=== PATIENT | female | born 1950 | race African-American/Black ===

== ENCOUNTER 2017-08-05 20:25 | Inpatient (IN) ==
[2017-08-05] MEDS ORDERED: DEXTROSE 50% 25 GM/50 ML SYRINGE IV ONE (20:33)
[2017-08-05] MEDS ORDERED: DEXTROSE 50% 25 GM/50 ML VIAL IV STA (21:00)
[2017-08-05] MEDS ORDERED: ADENOSINE 6 MG/2 ML VIAL ONE (21:37)
[2017-08-05 22:11] LABS: Basophils # 0.1 10*3/uL (0.0-0.2); Basophils % 0.4 % (0.0-0.8); Eosinophils # 0.2 10*3/uL (0.0-0.87); Eosinophils % 2.1 % (0.00-10.9); Hematocrit 39.3 VOL% (35.7-47.0); Hemoglobin 12.7 GM/DL (12.0-16.0); Immature Granulocytes % 0.3 %; Immature Granulocytes Absolute 0.03 #; Lymphocytes # 4.7 10*3/uL (1.4-4.0); Lymphocytes % 41.8 % (21.3-54.2); Mean Corpuscular HGB Conc 32.3 GM/DL (32-36); Mean Corpuscular Hemoglobin 30 PG (27-34); Mean Platelet Volume 10.3 FL (9.6-12.0); Monocytes % 8.9 % (1.7-12.7); Neutrophils # 5.2 10*3/uL (1.4-7.4); Neutrophils % 46.5 % (38.7-73.9); Platelet Count 237 T/CUMM (130-400); Red Blood Count 4.18 MC/CUMM (3.8-5.5); Red Cell Distribution Width 12.6 % (9.3-17.3); White Blood Count 11.3 T/CUMM (4-12)
[2017-08-05 22:12] LABS: Alanine Aminotransferase 11 U/L (13-56); Albumin 3.1 G/DL (3.4-5.0); Alkaline Phosphatase 65 U/L (45-117); Aspartate Amino Transferase 22 U/L (0-37); Bilirubin,Total < 0.39 MG/DL (0.2-1.0); Blood Urea Nitrogen 49 MG/DL (7-18); Calcium 9.3 MG/DL (8.5-10.1); Osmolality,Calculated 287.4 MOS/KG (273-304); Potassium 3.9 MMOL/L (3.5-5.1); Sodium 140 MMOL/L (136-145); Total Protein 7.6 G/DL (6.4-8.3)
[2017-08-05 22:17] LABS: Glucose 30 MG/DL (74-106)
[2017-08-06] MEDS ORDERED: DEXTROSE 50% 25 GM/50 ML VIAL IV PRN (02:12)
[2017-08-06] MEDS ORDERED: GLUCAGON 1 MG VIAL IM PRN (02:12)
[2017-08-06] MEDS ORDERED: ONDANSETRON 4 MG/2 ML VIAL IV PRN (02:12)
[2017-08-06] MEDS: DEXTROSE 5% NACL 0.45% 1,000 ML IV SCH ×4 (03:15→21:19)
[2017-08-06 05:56] LABS: Calcium 8.9 MG/DL (8.5-10.1); Osmolality,Calculated 287.7 MOS/KG (273-304); Potassium 4.7 MMOL/L (3.5-5.1)
[2017-08-06] MEDS: ACETAMINOPHEN 325 MG TABLET PO PRN ×3 (06:14→17:58)
[2017-08-06] MEDS ORDERED: hydrALAZINE 20 MG/1 ML VIAL IV PRN (06:38)
[2017-08-06] MEDS: INSULIN LISPRO 100 UNIT/ML SUBCUT SCH ×4 (07:34→20:12)
[2017-08-06] MEDS: PANTOPRAZOLE 40 MG TABLET PO SCH (08:19)
[2017-08-06] MEDS: TAMOXIFEN 10 MG TABLET PO SCH (08:19)
[2017-08-06] MEDS: METOPROLOL SUCCINATE XL 25 MG TABLET PO SCH ×2 (08:19→20:12)
[2017-08-06] MEDS: CYPROHEPTADINE 4 MG TABLET PO SCH (20:11)
[2017-08-07] MEDS: INSULIN LISPRO 100 UNIT/ML SUBCUT SCH ×4 (07:31→20:43)
[2017-08-07 07:39] LABS: Calcium 8.5 MG/DL (8.5-10.1); Osmolality,Calculated 292.7 MOS/KG (273-304)
[2017-08-07] MEDS: TAMOXIFEN 10 MG TABLET PO SCH (08:08)
[2017-08-07] MEDS: CYPROHEPTADINE 4 MG TABLET PO SCH ×2 (08:08→20:42)
[2017-08-07] MEDS: METOPROLOL SUCCINATE XL 25 MG TABLET PO SCH ×2 (08:08→20:42)
[2017-08-07] MEDS: PANTOPRAZOLE 40 MG TABLET PO SCH (08:08)
[2017-08-07] MEDS: ACETAMINOPHEN 325 MG TABLET PO PRN (10:50)
[2017-08-07] MEDS: AZITHROMYCIN 250 MG TABLET PO SCH (13:29)
[2017-08-07] MEDS: cefTRIAXone 2,000 MG in SYRINGE 1 EACH IV SCH (13:30)
[2017-08-07] MEDS: amLODIPine 10 MG TABLET PO SCH (13:30)
[2017-08-08] MEDS: ACETAMINOPHEN 325 MG TABLET PO PRN ×2 (02:02→10:06)
[2017-08-08 07:11] LABS: Osmolality,Calculated 301.4 MOS/KG (273-304); Potassium 4.7 MMOL/L (3.5-5.1)
[2017-08-08] MEDS: TAMOXIFEN 10 MG TABLET PO SCH (08:33)
[2017-08-08] MEDS: glipiZIDE 5 MG TABLET PO SCH (08:34)
[2017-08-08] MEDS: amLODIPine 10 MG TABLET PO SCH (08:34)
[2017-08-08] MEDS: METOPROLOL SUCCINATE XL 25 MG TABLET PO SCH ×2 (08:34→20:53)
[2017-08-08] MEDS: CYPROHEPTADINE 4 MG TABLET PO SCH ×2 (08:34→20:53)
[2017-08-08] MEDS: AZITHROMYCIN 250 MG TABLET PO SCH (08:34)
[2017-08-08] MEDS: INSULIN LISPRO 100 UNIT/ML SUBCUT SCH ×4 (08:35→20:54)
[2017-08-08] MEDS: PANTOPRAZOLE 40 MG TABLET PO SCH (08:35)
[2017-08-08] MEDS: traMADol 50 MG TABLET PO PRN ×2 (15:03→22:54)
[2017-08-08] MEDS: cefTRIAXone 2,000 MG in SYRINGE 1 EACH IV SCH (15:05)
[2017-08-09 04:48] LABS: Calcium 8.2 MG/DL (8.5-10.1); Osmolality,Calculated 308.3 MOS/KG (273-304); Potassium 5.2 MMOL/L (3.5-5.1)
[2017-08-09] MEDS: CYPROHEPTADINE 4 MG TABLET PO SCH (09:03)
[2017-08-09] MEDS: TAMOXIFEN 10 MG TABLET PO SCH (09:03)
[2017-08-09] MEDS: AZITHROMYCIN 250 MG TABLET PO SCH (09:04)
[2017-08-09] MEDS: INSULIN LISPRO 100 UNIT/ML SUBCUT SCH ×3 (09:04→12:01)
[2017-08-09] MEDS: glipiZIDE 5 MG TABLET PO SCH (09:04)
[2017-08-09] MEDS: PANTOPRAZOLE 40 MG TABLET PO SCH (09:04)
[2017-08-09] MEDS: METOPROLOL SUCCINATE XL 25 MG TABLET PO SCH (09:04)
[2017-08-09] MEDS: amLODIPine 10 MG TABLET PO SCH (09:04)
[2017-08-09] MEDS: traMADol 50 MG TABLET PO PRN (09:19)
[2017-08-09] MEDS: ACETAMINOPHEN 325 MG TABLET PO PRN (10:22)
[2017-08-09 12:08] VITALS: BP 129/68
[2017-08-09] MEDS: cefTRIAXone 2,000 MG in SYRINGE 1 EACH IV SCH (14:50)
[2017-08-09] MEDS ORDERED: SODIUM BICARBONATE 650 MG TABLET PO SCH (15:00)
== END 2017-08-09 15:20 | disposition home or self-care (01) | DRG 637 ==
LOC: N.EDINP 20:25 → N.ED 20:25 → N.CC 08-06 01:55 → N.4E 08-07 14:48
PROVIDERS: ADMIT Hospitalist; ATTEND Hospitalist

== ENCOUNTER 2017-08-17 02:09 | Observation (INO) ==
[2017-08-17 03:42] LABS: Basophils % 0.4 % (0.0-0.8); Eosinophils # 0.2 10*3/uL (0.0-0.87); Eosinophils % 1.9 % (0.00-10.9); Hematocrit 30.6 VOL% (35.7-47.0); Hemoglobin 9.7 GM/DL (12.0-16.0); Immature Granulocytes % 0.7 %; Immature Granulocytes Absolute 0.07 #; Lymphocytes # 3.2 10*3/uL (1.4-4.0); Lymphocytes % 33.1 % (21.3-54.2); Mean Corpuscular HGB Conc 31.7 GM/DL (32-36); Mean Corpuscular Hemoglobin 30 PG (27-34); Mean Corpuscular Volume 95.6 FL (87-102); Mean Platelet Volume 10.3 FL (9.6-12.0); Monocytes # 0.6 10*3/uL (0.11-0.8); Monocytes % 6.3 % (1.7-12.7); Neutrophils # 5.5 10*3/uL (1.4-7.4); Neutrophils % 57.6 % (38.7-73.9); Platelet Count 191 T/CUMM (130-400); Red Cell Distribution Width 13.1 % (9.3-17.3); White Blood Count 9.6 T/CUMM (4-12)
[2017-08-17 04:05] LABS: Alanine Aminotransferase 18 U/L (13-56); Albumin 2.8 G/DL (3.4-5.0); Alkaline Phosphatase 50 U/L (45-117); Aspartate Amino Transferase 26 U/L (0-37); Bilirubin,Total < 0.39 MG/DL (0.2-1.0); Blood Urea Nitrogen 83 MG/DL (7-18); Calcium 8.6 MG/DL (8.5-10.1); Glucose 237 MG/DL (74-106); Osmolality,Calculated 302.1 MOS/KG (273-304); Sodium 135 MMOL/L (136-145); Total Protein 6.6 G/DL (6.4-8.3)
[2017-08-17 04:17] LABS: Potassium 6.1 MMOL/L (3.5-5.1)
[2017-08-17] MEDS ORDERED: CALCIUM GLUCONATE 2,000 MG in SODIUM CHLORIDE 0.9% 100 ML IV ONE (04:19)
[2017-08-17] MEDS ORDERED: SODIUM CHLORIDE 0.9% 500 ML IV STA (04:19)
[2017-08-17] MEDS ORDERED: CALCIUM GLUCONATE 1,000 MG/10 ML VIAL IV ONE (04:40)
[2017-08-17] MEDS ORDERED: SODIUM BICARB INJ 50 MEQ in DEXTROSE 5% 1,000 ML IV SCH (05:00)
[2017-08-17] MEDS ORDERED: DEXTROSE 50% 25 GM/50 ML VIAL IV PRN (05:49)
[2017-08-17] MEDS ORDERED: ACETAMINOPHEN 325 MG TABLET PO PRN (05:49)
[2017-08-17] MEDS ORDERED: ONDANSETRON 4 MG/2 ML VIAL IV PRN (05:49)
[2017-08-17] MEDS ORDERED: GLUCAGON 1 MG VIAL IM PRN (05:49)
[2017-08-17] MEDS ORDERED: SODIUM CHLORIDE 0.9% 1,000 ML IV SCH (06:00)
[2017-08-17] MEDS ORDERED: SODIUM POLYSTYRENE SULFATE 15 GM/60 ML BOTTLE ONE ×2 (06:45→14:23)
[2017-08-17] MEDS: SODIUM POLYSTYRENE SULFATE 15 GM/60 ML BOTTLE PO SCH ×3 (06:50→21:08)
[2017-08-17 08:15] LABS: Basophils % 0.3 % (0.0-0.8); Eosinophils # 0.2 10*3/uL (0.0-0.87); Eosinophils % 1.7 % (0.00-10.9); Hemoglobin 9.7 GM/DL (12.0-16.0); Immature Granulocytes % 0.4 %; Immature Granulocytes Absolute 0.04 #; Lymphocytes # 2.8 10*3/uL (1.4-4.0); Mean Corpuscular HGB Conc 32.3 GM/DL (32-36); Mean Corpuscular Hemoglobin 31 PG (27-34); Mean Corpuscular Volume 94.6 FL (87-102); Mean Platelet Volume 10.1 FL (9.6-12.0); Monocytes # 0.6 10*3/uL (0.11-0.8); Neutrophils # 6.6 10*3/uL (1.4-7.4); Neutrophils % 64.6 % (38.7-73.9); Platelet Count 207 T/CUMM (130-400); Red Blood Count 3.17 MC/CUMM (3.8-5.5); Red Cell Distribution Width 13.2 % (9.3-17.3); White Blood Count 10.3 T/CUMM (4-12)
[2017-08-17] MEDS ORDERED: INSULIN LISPRO 100 UNIT/ML ONE (08:15)
[2017-08-17] MEDS: INSULIN LISPRO 100 UNIT/ML SUBCUT SCH ×4 (08:19→21:09)
[2017-08-17] MEDS ORDERED: amLODIPine 10 MG TABLET ONE (09:04)
[2017-08-17] MEDS ORDERED: PANTOPRAZOLE 40 MG TABLET PO ONE (09:05)
[2017-08-17] MEDS: glipiZIDE 5 MG TABLET PO SCH (09:11)
[2017-08-17] MEDS: amLODIPine 10 MG TABLET PO SCH (09:14)
[2017-08-17] MEDS: LEVOFLOXACIN 250 MG TABLET PO SCH (09:14)
[2017-08-17] MEDS: TAMOXIFEN 10 MG TABLET PO SCH (09:14)
[2017-08-17] MEDS: PANTOPRAZOLE 40 MG TABLET PO SCH (09:14)
[2017-08-17] MEDS: METOPROLOL SUCCINATE XL 25 MG TABLET PO SCH ×2 (09:15→21:07)
[2017-08-17] MEDS: SODIUM BICARBONATE 650 MG TABLET PO SCH ×3 (09:15→21:08)
[2017-08-17 09:24] LABS: Sedimentation Rate-Westergren 105 MM/HR (0-30)
[2017-08-17] MEDS: SODIUM BICARB INJ 150 MEQ in DEXTROSE 5% 850 ML IV SCH ×2 (11:22→21:13)
[2017-08-17 13:12] LABS: Hemoglobin A1 (Alkaline) 97.4 % (96.5-98.5); Hemoglobin A2 (Alkaline) 2.6 % (1.5-3.5)
[2017-08-17 17:45] LABS: Folate 12.3 NG/ML (5.4-24.0); Vitamin B12 1000 PG/ML (211-911)
[2017-08-17] MEDS: traMADol 50 MG TABLET PO PRN (23:00)
[2017-08-18] MEDS: SODIUM BICARB INJ 150 MEQ in DEXTROSE 5% 850 ML IV SCH (05:25)
[2017-08-18 06:07] LABS: Basophils % 0.4 % (0.0-0.8); Eosinophils # 0.2 10*3/uL (0.0-0.87); Hematocrit 28.2 VOL% (35.7-47.0); Hemoglobin 9.1 GM/DL (12.0-16.0); Immature Granulocytes % 0.4 %; Immature Granulocytes Absolute 0.03 #; Lymphocytes # 2.1 10*3/uL (1.4-4.0); Lymphocytes % 27.4 % (21.3-54.2); Mean Corpuscular HGB Conc 32.3 GM/DL (32-36); Mean Corpuscular Hemoglobin 30 PG (27-34); Mean Corpuscular Volume 93.7 FL (87-102); Mean Platelet Volume 10.3 FL (9.6-12.0); Monocytes # 0.5 10*3/uL (0.11-0.8); Monocytes % 6.5 % (1.7-12.7); Neutrophils # 4.8 10*3/uL (1.4-7.4); Neutrophils % 63.3 % (38.7-73.9); Platelet Count 192 T/CUMM (130-400); Red Blood Count 3.01 MC/CUMM (3.8-5.5); Red Cell Distribution Width 12.5 % (9.3-17.3); White Blood Count 7.5 T/CUMM (4-12)
[2017-08-18] MEDS: SODIUM POLYSTYRENE SULFATE 15 GM/60 ML BOTTLE PO SCH ×2 (06:22→14:34)
[2017-08-18 06:43] LABS: Calcium 8.1 MG/DL (8.5-10.1); Osmolality,Calculated 309.8 MOS/KG (273-304); Potassium 3.4 MMOL/L (3.5-5.1)
[2017-08-18] MEDS: METOPROLOL SUCCINATE XL 25 MG TABLET PO SCH (09:19)
[2017-08-18] MEDS: TAMOXIFEN 10 MG TABLET PO SCH (09:19)
[2017-08-18] MEDS: SODIUM BICARBONATE 650 MG TABLET PO SCH (09:19)
[2017-08-18] MEDS: glipiZIDE 5 MG TABLET PO SCH (09:19)
[2017-08-18] MEDS: amLODIPine 10 MG TABLET PO SCH (09:19)
[2017-08-18] MEDS: INSULIN LISPRO 100 UNIT/ML SUBCUT SCH ×2 (09:19→14:34)
[2017-08-18] MEDS: LEVOFLOXACIN 250 MG TABLET PO SCH (09:20)
[2017-08-18] MEDS: PANTOPRAZOLE 40 MG TABLET PO SCH (09:20)
[2017-08-18] MEDS: traMADol 50 MG TABLET PO PRN (09:25)
[2017-08-18 12:26] VITALS: BP 114/59
== END 2017-08-18 15:00 | disposition home or self-care (01) ==
LOC: EDUNIT# → EDBD → N.EDINP 02:09 → N.ED 02:09 → N.EDINP 06:17 → N.4E 14:48
PROVIDERS: ADMIT Hospitalist; ATTEND Hospitalist

== ENCOUNTER 2019-03-09 11:14 | Inpatient (IN) ==
[2019-03-09 12:24] LABS: Basophils % 0.1 % (0.0-0.8); Eosinophils # 0.2 10*3/uL (0.0-0.87); Eosinophils % 2.3 % (0.00-10.9); Immature Granulocytes % 0.5 %; Immature Granulocytes Absolute 0.04 #; Lymphocytes # 2.7 10*3/uL (1.4-4.0); Lymphocytes % 31.1 % (21.3-54.2); Mean Corpuscular HGB Conc 29.2 GM/DL (32-36); Mean Corpuscular Volume 105.2 FL (87-102); Mean Platelet Volume 10.8 FL (9.6-12.0); Monocytes % 6.9 % (1.7-12.7); Neutrophils % 59.1 % (38.7-73.9); Platelet Count 207 T/CUMM (130-400); Red Blood Count 1.53 MC/CUMM (3.8-5.5); Red Cell Distribution Width 18.6 % (9.3-17.3); White Blood Count 8.6 T/CUMM (4-12)
[2019-03-09 12:37] LABS: Hematocrit 16.1 VOL% (35.7-47.0); Hemoglobin 4.7 GM/DL (12.0-16.0)
[2019-03-09 12:45] LABS: Alanine Aminotransferase 11 U/L (13-56); Alkaline Phosphatase 55 U/L (45-117); Aspartate Amino Transferase 22 U/L (0-37); Bilirubin,Total < 0.39 MG/DL (0.2-1.0); Blood Urea Nitrogen 27 MG/DL (7-18); Calcium 8.9 MG/DL (8.5-10.1); Estimated Glom Filtration Rate 11 ML/MIN; Glucose 123 MG/DL (74-106); Osmolality,Calculated 291.8 MOS/KG (273-304); Total Protein 6.7 G/DL (6.4-8.3)
[2019-03-09 12:50] LABS: Anisocytosis 2+; Band Neutrophils 1 % (0-10); Eosinophils 7 % (0-10); Lymphocytes 30 % (20-55); Macrocytosis 2+; Platelet Estimate Normal; Segmented Neutrophils 56 % (50-85); Total Cells Counted 100
[2019-03-09 12:51] LABS: Hypochromasia Slight; Poikilocytosis Slight; Polychromasia Slight
[2019-03-09] MEDS ORDERED: SODIUM CHLORIDE 0.9% 1,000 ML IV PRN (12:57)
[2019-03-09] MEDS ORDERED: ONDANSETRON 4 MG/2 ML VIAL IV PRN (15:06)
[2019-03-09] MEDS ORDERED: POTASSIUM CHLORIDE RIDER 10 MEQ in PREMIX 1 EACH IV PRN (15:17)
[2019-03-09 15:33] LABS: Ferritin 18.3 ng/ml (8-252)
[2019-03-09 15:40] LABS: Risk Ratio 1.52; Thyroid Stimulating Hormone 1.65 uIU/ml (0.358-3.74)
[2019-03-09 15:56] LABS: Folate 10.3 NG/ML (5.4-24.0)
[2019-03-09] MEDS ORDERED: HEPARIN 10,000 UNIT/10 ML VIAL IV SCH (16:00)
[2019-03-09] MEDS ORDERED: EPOETIN ALFA 10,000 UNIT/1 ML VIAL IV PRN (16:25)
[2019-03-09] MEDS: IRON SUCROSE 200 MG in SODIUM CHLORIDE 0.9% 100 ML IV SCH (18:09)
[2019-03-09 18:25] LABS: Hemoglobin 8.3 GM/DL (12.0-16.0)
[2019-03-09 18:33] LABS: PT Patient Result 11.2 SECS (9.6-12.2)
[2019-03-09 18:39] LABS: Partial Thromboplastin Time 51.5 SECS (20.8-36.0)
[2019-03-09] MEDS: PANTOPRAZOLE 40 MG VIAL IV SCH (21:07)
[2019-03-09] MEDS ORDERED: ZALEPLON 5 MG CAPSULE PO SCH (21:45)
[2019-03-09] MEDS: ZALEPLON 5 MG CAPSULE PO SCH (22:05)
[2019-03-09 22:10] LABS: Hepatitis B Core IgM Quant 0.11 Index; Hepatitis B Surface Ag Quant 0.22 Index; Hepatitis B Surface Ag Result Negative (Negative); Hepatitis C Virus Ab Quant < 0.02 Index; Hepatitis C Virus Ab Result Negative (Negative)
[2019-03-09 22:18] LABS: Hemoglobin 7.8 GM/DL (12.0-16.0)
[2019-03-10 05:11] LABS: Basophils % 0.2 % (0.0-0.8); Eosinophils # 0.2 10*3/uL (0.0-0.87); Eosinophils % 2.8 % (0.00-10.9); Hematocrit 26.3 VOL% (35.7-47.0); Hemoglobin 8.5 GM/DL (12.0-16.0); Immature Granulocytes % 0.2 %; Immature Granulocytes Absolute 0.02 #; Lymphocytes # 1.7 10*3/uL (1.4-4.0); Lymphocytes % 19.6 % (21.3-54.2); Mean Corpuscular HGB Conc 32.3 GM/DL (32-36); Mean Corpuscular Volume 96.3 FL (87-102); Mean Platelet Volume 10.4 FL (9.6-12.0); Monocytes % 5.5 % (1.7-12.7); NRBC # 0.03 10*3/uL; Neutrophils % 71.7 % (38.7-73.9); Platelet Count 228 T/CUMM (130-400); Red Blood Count 2.73 MC/CUMM (3.8-5.5); Red Cell Distribution Width 17.3 % (9.3-17.3); White Blood Count 8.6 T/CUMM (4-12)
[2019-03-10 05:38] LABS: Calcium 9.4 MG/DL (8.5-10.1); Osmolality,Calculated 286.8 MOS/KG (273-304)
[2019-03-10 09:34] LABS: Hematocrit 25.9 VOL% (35.7-47.0); Hemoglobin 8.2 GM/DL (12.0-16.0)
[2019-03-10] MEDS: ACETAMINOPHEN 325 MG TABLET PO PRN (09:53)
[2019-03-10] MEDS: PANTOPRAZOLE 40 MG VIAL IV SCH ×2 (10:34→23:01)
[2019-03-10] MEDS: IRON SUCROSE 200 MG in SODIUM CHLORIDE 0.9% 100 ML IV SCH (10:34)
[2019-03-10] MEDS: ATORVASTATIN 40 MG TABLET PO SCH (14:01)
[2019-03-10] MEDS: METOPROLOL TARTRATE 100 MG TABLET PO SCH ×2 (14:02→23:01)
[2019-03-10] MEDS: amLODIPine 10 MG TABLET PO SCH (14:02)
[2019-03-10] MEDS ORDERED: HALOPERIDOL 5 MG/ML AMP IV ONE (17:30)
[2019-03-10] MEDS ORDERED: ZALEPLON 5 MG CAPSULE PO SCH (21:00)
[2019-03-10] MEDS: ZALEPLON 5 MG CAPSULE PO SCH (23:01)
[2019-03-11 04:53] LABS: Basophils % 0.2 % (0.0-0.8); Eosinophils # 0.3 10*3/uL (0.0-0.87); Eosinophils % 3.1 % (0.00-10.9); Hematocrit 25.8 VOL% (35.7-47.0); Hemoglobin 7.9 GM/DL (12.0-16.0); Immature Granulocytes % 0.6 %; Immature Granulocytes Absolute 0.05 #; Lymphocytes # 1.8 10*3/uL (1.4-4.0); Mean Corpuscular HGB Conc 30.6 GM/DL (32-36); Mean Corpuscular Volume 98.5 FL (87-102); Mean Platelet Volume 9.9 FL (9.6-12.0); Monocytes % 6.1 % (1.7-12.7); NRBC # 0.04 10*3/uL; Platelet Count 196 T/CUMM (130-400); Red Blood Count 2.62 MC/CUMM (3.8-5.5); White Blood Count 8.9 T/CUMM (4-12)
[2019-03-11 05:18] LABS: Calcium 9.3 MG/DL (8.5-10.1)
[2019-03-11] MEDS: ATORVASTATIN 40 MG TABLET PO SCH (08:59)
[2019-03-11] MEDS: amLODIPine 10 MG TABLET PO SCH (08:59)
[2019-03-11] MEDS: METOPROLOL TARTRATE 100 MG TABLET PO SCH ×2 (08:59→21:49)
[2019-03-11] MEDS: TAMOXIFEN 10 MG TABLET PO SCH (09:40)
[2019-03-11] MEDS: ACETAMINOPHEN 325 MG TABLET PO PRN ×2 (09:41→15:19)
[2019-03-11] MEDS: IRON SUCROSE 200 MG in SODIUM CHLORIDE 0.9% 100 ML IV SCH (09:41)
[2019-03-11] MEDS: PANTOPRAZOLE 40 MG VIAL IV SCH ×2 (09:41→21:50)
[2019-03-11] MEDS: ZALEPLON 5 MG CAPSULE PO SCH (21:49)
[2019-03-12 05:03] LABS: Basophils % 0.3 % (0.0-0.8); Eosinophils # 0.3 10*3/uL (0.0-0.87); Hematocrit 26.4 VOL% (35.7-47.0); Hemoglobin 8.3 GM/DL (12.0-16.0); Immature Granulocytes % 0.4 %; Immature Granulocytes Absolute 0.04 #; Lymphocytes # 1.9 10*3/uL (1.4-4.0); Lymphocytes % 19.6 % (21.3-54.2); Mean Corpuscular HGB Conc 31.4 GM/DL (32-36); Mean Corpuscular Volume 98.1 FL (87-102); Mean Platelet Volume 11.5 FL (9.6-12.0); Monocytes % 8.7 % (1.7-12.7); NRBC # 0.05 10*3/uL; Platelet Count 190 T/CUMM (130-400); Red Blood Count 2.69 MC/CUMM (3.8-5.5); Red Cell Distribution Width 16.8 % (9.3-17.3); White Blood Count 9.5 T/CUMM (4-12)
[2019-03-12 05:25] LABS: Osmolality,Calculated 288.3 MOS/KG (273-304)
[2019-03-12] MEDS: TAMOXIFEN 10 MG TABLET PO SCH (08:33)
[2019-03-12] MEDS: IRON SUCROSE 200 MG in SODIUM CHLORIDE 0.9% 100 ML IV SCH (08:33)
[2019-03-12] MEDS: METOPROLOL TARTRATE 100 MG TABLET PO SCH ×2 (08:34→22:23)
[2019-03-12] MEDS: ATORVASTATIN 40 MG TABLET PO SCH (08:34)
[2019-03-12] MEDS: PANTOPRAZOLE 40 MG VIAL IV SCH ×2 (08:34→22:22)
[2019-03-12] MEDS: amLODIPine 10 MG TABLET PO SCH (08:34)
[2019-03-12] MEDS ORDERED: POTASSIUM CHLORIDE 20 MEQ TABLET PO ONE (09:43)
[2019-03-12] MEDS: ZALEPLON 5 MG CAPSULE PO SCH (22:23)
[2019-03-13 04:47] LABS: Basophils % 0.3 % (0.0-0.8); Eosinophils # 0.2 10*3/uL (0.0-0.87); Eosinophils % 2.6 % (0.00-10.9); Hematocrit 23.8 VOL% (35.7-47.0); Hemoglobin 7.5 GM/DL (12.0-16.0); Immature Granulocytes % 0.6 %; Immature Granulocytes Absolute 0.06 #; Lymphocytes # 1.9 10*3/uL (1.4-4.0); Lymphocytes % 20.1 % (21.3-54.2); Mean Corpuscular HGB Conc 31.5 GM/DL (32-36); Mean Platelet Volume 11.1 FL (9.6-12.0); Monocytes % 8.3 % (1.7-12.7); NRBC # 0.07 10*3/uL; Neutrophils % 68.1 % (38.7-73.9); Platelet Count 171 T/CUMM (130-400); Red Blood Count 2.38 MC/CUMM (3.8-5.5); Red Cell Distribution Width 17.1 % (9.3-17.3); White Blood Count 9.4 T/CUMM (4-12)
[2019-03-13] MEDS: TAMOXIFEN 10 MG TABLET PO SCH (08:57)
[2019-03-13] MEDS: amLODIPine 10 MG TABLET PO SCH (08:57)
[2019-03-13] MEDS: ACETAMINOPHEN 325 MG TABLET PO PRN ×2 (08:57→20:18)
[2019-03-13] MEDS: ATORVASTATIN 40 MG TABLET PO SCH (08:57)
[2019-03-13] MEDS: METOPROLOL TARTRATE 100 MG TABLET PO SCH ×2 (08:57→20:18)
[2019-03-13] MEDS: PANTOPRAZOLE 40 MG VIAL IV SCH ×2 (08:58→20:18)
[2019-03-13] MEDS: IRON SUCROSE 200 MG in SODIUM CHLORIDE 0.9% 100 ML IV SCH (08:58)
[2019-03-13] MEDS: ZALEPLON 5 MG CAPSULE PO SCH (20:18)
[2019-03-14] MEDS: ACETAMINOPHEN 325 MG TABLET PO PRN ×2 (00:59→08:02)
[2019-03-14] MEDS: PANTOPRAZOLE 40 MG VIAL IV SCH ×2 (08:00→20:44)
[2019-03-14] MEDS: METOPROLOL TARTRATE 100 MG TABLET PO SCH ×2 (08:01→20:44)
[2019-03-14] MEDS: TAMOXIFEN 10 MG TABLET PO SCH (08:01)
[2019-03-14] MEDS: amLODIPine 10 MG TABLET PO SCH (08:01)
[2019-03-14] MEDS: ATORVASTATIN 40 MG TABLET PO SCH (08:01)
[2019-03-14] MEDS: ZALEPLON 5 MG CAPSULE PO SCH (20:44)
[2019-03-15 05:13] LABS: Basophils % 0.2 % (0.0-0.8); Eosinophils # 0.4 10*3/uL (0.0-0.87); Eosinophils % 3.8 % (0.00-10.9); Hematocrit 28.2 VOL% (35.7-47.0); Hemoglobin 8.8 GM/DL (12.0-16.0); Immature Granulocytes % 0.7 %; Immature Granulocytes Absolute 0.08 #; Lymphocytes # 3.2 10*3/uL (1.4-4.0); Lymphocytes % 27.6 % (21.3-54.2); Mean Corpuscular HGB Conc 31.2 GM/DL (32-36); Mean Corpuscular Volume 100.7 FL (87-102); Mean Platelet Volume 11.2 FL (9.6-12.0); Monocytes % 7.5 % (1.7-12.7); NRBC # 0.04 10*3/uL; Neutrophils % 60.2 % (38.7-73.9); Platelet Count 122 T/CUMM (130-400); Red Cell Distribution Width 19.1 % (9.3-17.3); White Blood Count 11.7 T/CUMM (4-12)
[2019-03-15 05:35] LABS: Calcium 8.5 MG/DL (8.5-10.1); Osmolality,Calculated 290.3 MOS/KG (273-304)
[2019-03-15] MEDS ORDERED: SODIUM CHLORIDE 0.9% 1,000 ML IV SCH (08:00)
[2019-03-15] MEDS: METOPROLOL TARTRATE 100 MG TABLET PO SCH (10:48)
[2019-03-15] MEDS: amLODIPine 10 MG TABLET PO SCH (10:48)
[2019-03-15] MEDS: ATORVASTATIN 40 MG TABLET PO SCH (10:48)
[2019-03-15] MEDS: TAMOXIFEN 10 MG TABLET PO SCH (10:49)
[2019-03-15] MEDS: PANTOPRAZOLE 40 MG VIAL IV SCH (10:51)
[2019-03-15 15:41] VITALS: BP 113/44
== END 2019-03-15 15:52 | disposition home health service (06) | DRG 811 ==
LOC: EDUNIT# → EDBD → N.ED 11:14 → N.5E 13:48 → N.EDINP 15:07 → SUATTDRO 15:07 → N.5E 15:45
PROVIDERS: ADMIT Internal Medicine; ATTEND Internal Medicine